=== PATIENT | female | born 1960 | race Caucasian/White ===

== ENCOUNTER 2017-07-21 18:59 | Emergency (ER) | payer MEDICAID ==
[~2017-07-21] VITALS: Ht 152.4 cm; Wt 92.1 kg
[2017-07-21 19:04] VITALS: Ht 152.4 cm; Wt 92.1 kg
[2017-07-21 19:36] VITALS: BP 160/80
== END 2017-07-21 19:36 | disposition home or self-care (01) ==
LOC: ED 18:59
DX: L03.115 Cellulitis of right lower limb (principal); I10 Essential (primary) hypertension

== ENCOUNTER 2017-09-20 17:59 | Emergency (ER) | payer MEDICAID ==
[~2017-09-20] VITALS: Ht 152.4 cm; Wt 93.9 kg
[2017-09-20 18:02] VITALS: Ht 152.4 cm; Wt 93.9 kg
[2017-09-20 19:05] LABS: BASOPHIL % 0.7 % (0-2); PLATELET COUNT 305 x10^3mcL (130-400); RED CELL DISTRIBUTION WIDTH 12.9 % (11.5-14.5)
[2017-09-20 19:30] LABS: CALCIUM 8.7 mg/dL (8.5-10.1); CARBON DIOXIDE 27.9 mmol/L (21-32); CREATININE SERUM 1.1 mg/dL (0.6-1.0); POTASSIUM SERUM 3.6 mmol/L (3.5-5.1)
[2017-09-20 19:35] LABS: BILIRUBIN TOTAL 0.7 mg/dL (0.20-1.00); C REACTIVE PROTEIN 0.5 mg/dL (<=0.9)
[2017-09-20 19:43] LABS: ALBUMIN 3.3 g/dL (3.4-5.0); TOTAL PROTEIN, SERUM 8.7 g/dL (6.4-8.2)
[2017-09-20 19:53] LABS: ERYTHROCYTE SED RATE 49 mm/hr (0-30)
[2017-09-20 20:21] VITALS: BP 151/97
== END 2017-09-20 20:21 | disposition home or self-care (01) ==
LOC: ED 17:59
PROVIDERS: Specialist
DX: L03.115 Cellulitis of right lower limb (principal); I10 Essential (primary) hypertension; I87.2 Venous insufficiency (chronic) (peripheral)
CPT/HCPCS: 83880; 84439; J2543; J7050